=== PATIENT | female | born 1965 | race Caucasian/White ===

== ENCOUNTER 2017-03-17 13:18 | Emergency (ER) | payer OTHER ==
[~2017-03-17] VITALS: Ht 165.1 cm; Wt 72.0 kg
[2017-03-17 13:26] VITALS: BP 151/92; PULSE 53; RESP 16; TEMP 97.4; O2SAT 99
[2017-03-17] MEDS ORDERED: LAMO200T PO (13:55)
[2017-03-17] MEDS ORDERED: ADDE30TA PO (13:55)
[2017-03-17] MEDS ORDERED: ZOLO100T PO (13:55)
[2017-03-17 14:02] VITALS: BP 141/82; PULSE 55; RESP 16; O2SAT 98
[2017-03-17] MEDS ORDERED: ONDANSETRON ODT 4 MG TAB PO ONE (14:30)
[2017-03-17] MEDS ORDERED: MECLIZINE HCL 25 MG TAB PO ONE (14:30)
[2017-03-17] MEDS ORDERED: ACETAMINOPHEN/HYDROcodone 325 MG/5 MG TAB PO ONE (14:30)
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
[2017-03-17 15:50] VITALS: RESP 16
[2017-03-17] MEDS ORDERED: HYDR-3534 PO (15:55)
[2017-03-17 16:10] VITALS: BP 149/71
== END 2017-03-17 16:12 | disposition home or self-care (01) ==
LOC: PHED 13:18
DX: M54.2 Cervicalgia (principal); R42 Dizziness and giddiness; Z87.891 Personal history of nicotine dependence
CPT/HCPCS: 72125